=== PATIENT | male | born 2000 | race Caucasian/White ===

== ENCOUNTER 2020-05-24 11:24 | Emergency (ER) | payer MEDICAID, SELFPAY ==
--- NOTE | 2020-05-24 12:14 | CT ---
Head CT without contrast 05/24/2020: Comparison: None HISTORY: Fall, head trauma TECHNIQUE: Axial CT imaging at 5 mm intervals from vertex through skull base without contrast FINDINGS: The visualized paranasal sinuses and mastoid air cells appear grossly unremarkable. No intr acranial hemorrhage, midline shift, mass effect, or ventricular enlargement. There is scalp swelling in the left frontal region superiorly. IMPRESSION: Left-sided scalp swelling with no displaced fracture or intracranial hemorrhage.
== END 2020-05-24 12:25 | disposition home or self-care (01) ==
LOC: ERS 11:24
DX: S06.0X1A Concussion with loss of consciousness of 30 minutes or less, initial encounter (principal); S00.03XA Contusion of scalp, initial encounter; F41.9 Anxiety disorder, unspecified; F31.9 Bipolar disorder, unspecified; F17.210 Nicotine dependence, cigarettes, uncomplicated; W18.30XA Fall on same level, unspecified, initial encounter
CPT/HCPCS: 70450

== ENCOUNTER 2021-10-24 19:29 | Emergency (ER) | payer MEDICAID, SELFPAY | END 2021-10-24 20:09 | disposition home or self-care (01) | LOC: ERS 19:29 | DX: B34.9 Viral infection, unspecified (principal); F17.210 Nicotine dependence, cigarettes, uncomplicated | CPT/HCPCS: 99283 ==